=== PATIENT | male | born 1970 | race Caucasian/White ===

== ENCOUNTER 2021-03-12 07:25 | Outpatient (CLI) | payer OTHER, SELFPAY ==
--- NOTE | 2021-03-12 07:46 | ECG_ITS ---
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 Interpretive Statements NAME OF STUDY: LEXISCAN SESTAMIBI STRESS TEST INDICATION: Nonsustained ventricular tachycardia, frequent PVCs PROCEDURE: At the baseline, the blood pressure was 130/77 mmHg, oxygen saturation 98% with a heart rate of 60 bpm. The electrocardiogram showed sinus rhythm, normal axis. Artifact. Poor anterior R wave progression. The Lexiscan was infused over a period of 20 seconds. A total of 0.4 milligrams of Lexiscan was infused. The stress phase was continued for a total of 5 minutes. Heart rate at the end of the stress phase was 66 bpm, oxygen saturation 98% with a blood pressure of 84/55 mmHg. The EKG at the peak infusion revealed sinus rhythm with no significant ST-T wave changes. Frequent isolated PVCs noted during Lexiscan infusion. The study was terminated due to protocol completion. Sestamibi was injected 20 seconds after the Lexiscan infusion. Blood pressure at the end of the recovery phase was 115/52 mmHg with a heart rate of 61 beats per minute and oxygen saturation 97%. CONCLUSION: 1. No significant EKG changes with the LexiScan infusion. 2. No LexiScan induced chest pain or cardiac arrhythmia. 3. Normal blood pressure and heart rate response. 4. Sestamibi/sestamibi perfusion scan pending; see separate report. Electronically Signed On 03-13-2021 18:09:25 CDT by Noelle Jose M.D. [email or web address]
--- NOTE | 2021-03-12 07:47 | NMCV_ITS ---
NM liset perf SPECT r/s* [id number] Gael Boyd Age: 50 Gender: M : 1970 Exam Date: 03/12/2021 08:55 Ordering Phys: Noelle Jose MD ([email or web address]) Technologist: JAUN Sargent Exam Location: [facility] Indications: CHEST PAIN STRESS TEST Please see separate stress test report in [facility] for full findings IMAGE PROTOCOL Rest/Stress 1 Lexiscan Day Radiopharmaceutical Dose (mCi) Administration Site Administered by Rest: Tc-99m 11.0 IV JAUN Mcdermott Sestamibi Stress:Tc-99m 32.4 IV JAUN Mcdermott Sestamibi Rest: 12-Mar-2021 60 Discovery 630 Stress: 12-Mar-2021 30 Discovery 630 0.4mg Lexiscan. Images obtained in supine and prone position. SPECT RESULTS Technical Quality: Excellent Raw Data Analysis: Normal Image Corrections: No attenuation or motion correction applied Summed Stress Score: 4 Summed Rest Score: 0 Summed Difference Score: 4 PERFUSION FINDINGS Small sized perfusion abnormality of mild severity of mid inferior, mid inferolateral and apical lateral mcneal on stress images. FUNCTIONAL RESULTS (calculated via Gated SPECT) Stress Image LV EF (%): 66 Stress EDV (mL):180 TID: 1.02 Stress ESV (mL):61 FUNCTIONAL FINDINGS: The left ventricle is normal in size. Transient Ischemia Dilatation of 1. There is normal left ventricular systolic function. The left ventricular ejection fraction is normal with a value of 66%. There is normal left ventricular wall thickening with no regional wall motion abnormality. Increased end-diastolic volume. IMPRESSIONS 1. Small sized reversible perfusion abnormality of mild severity of mid inferior, mid inferolateral and apical lateral mcneal. 2. This likely represents small area of ischemia in circumflex artery territory (SDS=4). 3. Overall left ventricular systolic function is normal without regional wall motion abnormalities. 4. The left ventricular ejection fraction is normal with a value of 66%. 5. No EKG changes with lexiscan infusion. 6. These findings appear to be new when compared to prior study dated 02/24/2019. Noelle Jose MD (Electronically Signed) Final Date: 13 March 2021 18:12 S
[2021-03-12] MEDS: regadenoson 0.4 Mg/5 ml Syringe IVP (09:45)
[2021-03-12 09:50] VITALS: BP 115/52; PULSE 59
== END 2021-03-12 07:26 | disposition home or self-care (01) ==
LOC: CDL 07:29
PROVIDERS: Visit Provider Internal Medicine Cardiovascular Disease
DX: R07.9 Chest pain, unspecified (principal)
CPT/HCPCS: 78452; 93017; A9500; J2785

== ENCOUNTER 2021-04-08 18:00 | Outpatient (CLI) | payer OTHER, SELFPAY | END 2021-04-08 18:01 | disposition home or self-care (01) | LOC: LAB 10-29 12:39 | PROVIDERS: PCP Internal Medicine Cardiovascular Disease; Visit Provider Internal Medicine Cardiovascular Disease | DX: R00.2 Palpitations (principal); I47.2 Ventricular tachycardia; I49.3 Ventricular premature depolarization | CPT/HCPCS: 80053; 80061; 85025; 85610; 87635 ==

== ENCOUNTER 2021-04-11 06:03 | Outpatient (CLI) | payer OTHER, SELFPAY ==
[2021-04-11] VITALS (14 sets, daily range): BP systolic 118–138; BP diastolic 54–86; PULSE 47–73; RESP 15–18; TEMP 36.8; O2SAT 95–99; BMI 33.1
--- NOTE | 2021-04-11 06:00 | XACV_ITS ---
Exam Room: 1 Ht: 198 cm Wt: 130 kg BSA: 2.71 m2 Gender: Male : 1970 Exam Priority: Routine Procedure(s): Procedure Description: Diagnostic procedure Procedure Description: Left Heart Catheterization Procedure Description: Left ventriculography Procedure Description: Coronary Angiography SENAITGely SANTANA; Diagnostic Cath Status: Elective Diagnostic Findings * No disease noted in the Left Main, Left Anterior Descending, Right, or Circumflex coronary arteries. * Coronary angiography shows right dominance. Conclusions 1. No disease noted in the Left Main, Left Anterior Descending, Right, or Circumflex coronary arteries. 2. All mcneal are normal. 3. Normal left ventricular systolic function. Ejection fraction of 55%. Recommendations * Continue current medical management and risk factor modification. Ventriculography Ejection Fraction: 55.0 % Pressures Phase:Rest AO : 113 / 82 ( 98 ) @ 7:31:00 AM 125 / 74 ( 98 ) @ 7:37:00 AM 124 / 73 ( 97 ) @ 7:37:00 AM LV : 126 / -9 / 10 @ 7:35:00 AM 131 / -4 / 16 @ 7:35:00 AM 123 / -2 / 16 @ 7:36:00 AM 126 / -3 / 17 @ 7:37:00 AM Valves Phase:DefaultPhase AV : 1.0 @ 8:43:39 AM AV Mean Gradient: 0.0 @ 8:43:39 AM Clinical Evaluation EBL: 5mL-10mL Procedural Details Procedure Consent Obtained. Pre-Procedure Time Out. Identified patient by full name and date of as verbalized by the patient/guarantor. Does the consent match the physician's order: Yes. Accurate & Complete Informed Consent: Yes. Inpatient/Outpatient History & Physical on Chart: Yes. If H&P is completed, is and addenduem needed: Yes. Visualize and Verify Site with Patient/Guarantor: N/A. Relevant Radiology Images available: Yes. The risks, benefits, and alternatives of sedation and/or procedure were discussed by physician. The patient agrees to continue. Procedure started. Arabella Fay RN Circulating. [facility] Clinical Fraility Score: 3: Managing Well. 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 Chest Pain Symptom Assessment: Typical Angina Symptoms. Cardiovascular Instability: No. Correct patient, site and procedure confirmed by cath team. PERRLA. Strong, equal hand automatic lathe setter bilaterally. Lungs clear x 5 lobes. IV Site on Arrival: 20 gauge in the right anticubital. IV Fluids: 0.9% NaCl at KVO. 0 mL infused prior to cathode maker. Pre Procedural Pulses: bilateral radial was 3+. Oxygen started at 2liters/min via nasal canula. right radial was prepped with chloroprep then draped in the usual sterile fashion. Physician notified. Baseline sample Acquired. HR: 45 BPM. Equipment: 6F - Radial. ACIST Manifold Kit Model BT 2000. Cardiac Cath Pack. Heparinized Saline (2 units/mL), 1000 mL bag. Physician arrived. Patient's family available by phone. Dr. Hong will update when procedure is completed. Physician scrubbed in. Immediate Pre-Procedure Time Out. Correct Patient: Yes; Correct Procedure: Yes; Correct Site: Yes; Correct Patient Position: Yes; Correct Supplies: Yes; Dried Flammable Prep: Yes; Blood Products Available: N/A;. Lidocaine 1% infiltrated to the right radial. Arterial access obtained. A 5 montenegrin TIG catheter in over wire. Multiple views taken of left coronary artery. Catheter redirected to the RCA. Multiple views taken of right coronary artery. Catheter removed over the exchange wire. A 5 montenegrin Angled Pig catheter in over wire. EDP Sample taken: LV 126/-10,10; HR: 69 BPM; SpO2: 93%. EDP Sample taken: LV 131/-5,16; HR: 68 BPM; SpO2: 95%. LV gram performed in TATUM @ 10 mL/second for a total of 30 mL. EDP Sample taken: LV 123/-3,16; HR: 64 BPM; SpO2: 91%. Pullback taken: LV 126/-4,17; AO 125/74(98); Mean: 0mmHg, Peak to Peak: 1mmHg, SEP: 6sec/min; HR: 66 BPM; SpO2: 93%. Catheter removed over the exchange wire. TR band placed. Hemostasis obtained. A TR Band was successful obtaining hemostatsis at the Right Radial artery insertion site. Post Procedure: Pulses reassessed and unchanged. PERRLA. Strong, equal hand automatic lathe setter bilaterally. No VTE prophylaxis required. Medication's Wasted: Lidocaine 1% = 10 mL. Medication's Wasted: Heparin = 1000 units. Medication's Wasted: Nitro = 49.8 mcg. Total IV fluids: 13 mL. Contrast type used: Omnipaque 300 mgI/mL, 500 mL bottle. Complications: None. Post-op diagnosis: Normal Coronaries. Estimated blood loss: 5mL-10mL. Procedure completed. Patient transferred by wheelchair to CPRU. Vital chart was stopped. Access Site Site: Right Radial artery Sheath Size: 6 Fr Hemostasis Method: TR Band Hemostasis Success: Successful Procedure Medications Start: 8:26 AM Stop: 8:26 AM Medication: Nitrogylcerin Amount: 200 mcg Route: I.A. Start: 8:27 AM Stop: 8:27 AM Medication: Versed Amount: 1 mg Route: I.V. Start: 8:27 AM Stop: 8:27 AM Medication: Fentanyl Amount: 50 mcg Route: I.V. Start: 8:29 AM Stop: 8:29 AM Medication: Heparin Amount: 5000 units Route: I.V. Start: 8:30 AM Stop: 8:30 AM Medication: Versed Amount: 1 mg Route: I.V. Start: 8:30 AM Stop: 8:30 AM Medication: Fentanyl Amount: 50 mcg Route: I.V. I, the attending physician, have reviewed and verified all procedure medications. Yes, all medications given per verbal order History/Risk Factors Hypertension: No Dyslipidemia: No Peripheral Arterial Disease (PAD): No Myocardial Infarction (AZ): No Obesity: No Renal Disease: No Tobacco Use: Former Prior Interventions PCI: No CABG: No Valve Surgery: No Report Signatures Finalized by Froilan Hong MD on 04/25/2021 07:59 PM
[2021-04-11] MEDS: diphenhydrAMINE 50 mg Capsule PO (06:41)
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
--- NOTE | 2021-04-11 09:20 | PC.NURSE ---
recovery received pt from lab courier post diagnostic [facility]. pt alert and oriented x3. pt complains of no pain. tr band on right wrist with distal pulse present. pt placed on monitor and will have vitals taken per protocol. pt educated on right wrist restrictions and acknowledged understanding. will continue to re-educate throughout recovery. plan to dc after [address] bolivar.
--- NOTE | 2021-04-11 11:54 | PC.NURSE ---
TR BAND BAND OFF WITH NO ISSUES. PT EDUCATED ON RESTRICTIONS OF RIGHT WRIST AND VOCALIZED HIS UNDERSTANDING. AT BEDSIDE AND ALSO ACKNOWLEDGED UNDERSTANDING
== END 2021-04-11 12:14 | disposition home or self-care (01) ==
PROVIDERS: Visit Provider Internal Medicine Cardiovascular Disease
DX: R94.39 Abnormal result of other cardiovascular function study (principal); I49.3 Ventricular premature depolarization; Z87.891 Personal history of nicotine dependence; E66.9 Obesity, unspecified; Z68.33 Body mass index [BMI] 33.0-33.9, adult
CPT/HCPCS: 36415; 93452; C1769; C1887; C1894; J1644; J2250; J3010; J3490; J7030; Q0163; Q9967

== ENCOUNTER → 2021-04-25 15:45 | Outpatient (BNVA) | payer OTHER, SELFPAY | PROVIDERS: Visit Provider Internal Medicine Cardiovascular Disease | DX: R07.9 Chest pain, unspecified (principal); R00.2 Palpitations; R42 Dizziness and giddiness; I49.3 Ventricular premature depolarization; E66.09 Other obesity due to excess calories; Z68.35 Body mass index [BMI] 35.0-35.9, adult | CPT/HCPCS: 80048; 83735; 84443 ==

== ENCOUNTER → 2025-02-22 08:45 | Outpatient (BNVA) | payer OTHER, SELFPAY | PROVIDERS: Visit Provider Specialist | DX: G43.711 Chronic migraine without aura, intractable, with status migrainosus (principal); G31.84 Mild cognitive impairment of uncertain or unknown etiology; Z77.098 Contact with and (suspected) exposure to other hazardous, chiefly nonmedicinal, chemicals; Z87.820 Personal history of traumatic brain injury | CPT/HCPCS: 36415; 82607; 82746; 83520; 99205 ==

== ENCOUNTER 2025-03-09 09:12 | Outpatient (CLI) | payer OTHER, SELFPAY ==
--- NOTE | 2025-03-09 09:30 | MR_ITS ---
WS: [id number] MRI BRAIN WITH AND WITHOUT CONTRAST HISTORY: Headaches and memory loss for several years. Migraines. COMPARISON: CT head 12/25/2018 TECHNIQUE: Multiplanar imaging performed through the brain with MultiHance 20 ml's IV. No acute infarcts are seen. Longo-white matter differentiation is well preserved. Very minimal bifrontal lobe atrophy. No prior infarcts or significant small vessel disease. Hippocampal formations are normal. No susceptibility artifacts or prior lacunar infarcts. Ventricles and extra-axial spaces are normal. Clivus and pituitary gland are normal. Visualized posterior fossa and brainstem are also normal. Postcontrast images are negative for masses or vascular malformations. Dural venous sinuses are normal. 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 No air-fluid levels within the sinuses. Mastoid air cells: Normal. Calvarium and scalp: Normal. MR/MR head wo/w con [id number] IMPRESSION: 1. No acute infarcts, hemorrhage or mass. 2. Very mild bifrontal lobe atrophy. 3. No significant small vessel disease. 4. Normal hippocampal formations.
[2025-03-09] MEDS: gadobenate dimeglumine 20 mL vial IV (09:43)
== END 2025-03-09 09:13 | disposition home or self-care (01) ==
LOC: RAD 09:15
PROVIDERS: Visit Provider Specialist
DX: G43.909 Migraine, unspecified, not intractable, without status migrainosus (principal)
CPT/HCPCS: 70553

== ENCOUNTER → 2025-03-14 07:49 | Outpatient (BNVA) | payer OTHER, SELFPAY | PROVIDERS: Referring Provider Specialist; Visit Provider Specialist | DX: G31.84 Mild cognitive impairment of uncertain or unknown etiology (principal); Z87.820 Personal history of traumatic brain injury | CPT/HCPCS: 95819 ==

== ENCOUNTER → 2025-05-23 14:36 | Outpatient (BNVA) | payer OTHER, SELFPAY | PROVIDERS: Visit Provider Specialist | DX: G43.711 Chronic migraine without aura, intractable, with status migrainosus (principal); G31.84 Mild cognitive impairment of uncertain or unknown etiology; Z77.098 Contact with and (suspected) exposure to other hazardous, chiefly nonmedicinal, chemicals; Z87.820 Personal history of traumatic brain injury | CPT/HCPCS: 99214 ==